=== PATIENT | female | born 1965 | race Caucasian/White ===

== ENCOUNTER 2022-06-25 05:07 | Emergency (ER) | payer OTHER ==
[~2022-06-25 05:07] MED LIST: ANORO ELLIPTA1 EACH INH; GLUCOTROL5 MG PO; LISINOPRIL-HCT1 EACH PO; LOVASTATIN10 MG PO; LOVAZA1 GM PO; METFORMIN HCL1000 MG PO; NAPROXEN500 MG PO; VIT D3
[2022-06-25 07:09] LABS: BASOPHIL 0.4 % (0-2); HCT 41.6 % (37.0-47.0); HGB 13.5 g/dl (12.5-16.0); LYMPHOCYTE 16.8 % (15-48); MCH 30.1 pg (25.0-31.0); MCHC 32.5 g/dL (32.0-36.0); MCV 92.9 fL (78.0-100.0); MONOCYTE 6.9 % (0-12); MPV 10.7 fL (6.0-9.5); NEUTROPHIL 73.5 % (41-80); NRBC 0; PLT 269 K/uL (150-400); RBC 4.48 M/uL (4.20-5.40); RDW 13.8 % (11.5-14.0); WBC 11.1 K/uL (4.0-10.5)
[2022-06-25 07:17] LABS: BILIRUBIN NEGATIVE (NEGATIVE); BLOOD NEGATIVE Ery/uL (NEGATIVE); CLARITY CLEAR (CLEAR); COLOR YELLOW (YELLOW); GLUCOSE (U) NORMAL (NORMAL); LEUKOCYTES 3+ Leu/uL (NEGATIVE); NITRITE NEGATIVE (NEGATIVE); PROTEIN NEGATIVE (NEGATIVE); SPECIFIC GRAVITY 1.015 (1.001-1.030); UROBILINOGEN 0.2 mg/dL (0.2-1.0); pH 5.5 (5.0-9.0)
[2022-06-25 07:23] LABS: ALBUMIN 4.1 g/dL (3.4-5.0); BILIRUBIN - TOTAL 0.5 mg/dL (0.2-1.0); BUN/CREAT RATIO (CALC) 37.1 RATIO; CREATININE 1.05 mg/dL (0.51-0.95); GLOBULIN (CALCULATION) 4.2 g/dL; POTASSIUM 4.4 mmol/L (3.5-5.1); TOTAL PROTEIN 8.3 g/dL (6.4-8.2)
[2022-06-25] MEDS ORDERED: FLEXERIL5 MG PO (07:41)
[2022-06-25] MEDS ORDERED: NORCO 5-325 TA1 EACH PO (07:41)
== END 2022-06-25 08:14 | disposition home or self-care (01) ==
LOC: FER 05:07
PROVIDERS: Internal Medicine
DX: M54.6 Pain in thoracic spine (principal); R91.1 Solitary pulmonary nodule; I10 Essential (primary) hypertension; E11.9 Type 2 diabetes mellitus without complications; J44.9 Chronic obstructive pulmonary disease, unspecified; Z79.84 Long term (current) use of oral hypoglycemic drugs; Z87.891 Personal history of nicotine dependence; W01.0XXA Fall on same level from slipping, tripping and stumbling without subsequent striking against object, initial encounter; Y92.89 Other specified places as the place of occurrence of the external cause; Y99.0 Civilian activity done for income or pay
CPT/HCPCS: 36415; 71250; 80053; 81001; 85025